=== PATIENT | female | born 1970 | race Hispanic/Latino ===

== ENCOUNTER 2019-06-11 07:30 | Inpatient (IN) | payer OTHER ==
[2019-06-07 12:58] LABS: Basophils # (Auto) 0.1 K/mm3 (0.0-0.1); Basophils % (Auto) 2.8 % (0.0-1.8); Eosinophils # (Auto) 0.1 K/mm3 (0.0-0.4); Eosinophils % (Auto) 2.4 % (0.0-4.3); Lymphocytes # (Auto) 1.4 K/mm3 (1.2-5.4); Mean Corpuscular HGB Conc 32 % (30-34); Mean Corpuscular Volume 86 fl (79-97); Monocytes # (Auto) 0.2 K/mm3 (0.0-0.8); Platelet Count 226 K/mm3 (140-440); Red Cell Distribution Width 16.7 % (13.2-15.2)
--- NOTE | 2019-06-07 17:06 | Anesthesia Consultation ---
Anesthesia Consult and Med Hx Date of service: 06/11/19 - Airway Anesthetic Teeth Evaluation: Good ROM Head & Neck: Adequate Mental/Hyoid Distance: Adequate Mallampati Class: Class II Intubation Access Assessment: Probably Good - Pulmonary Exam CTA: Yes - Cardiac Exam Cardiac Exam: RRR - Pre-Operative Health Status ASA Pre-Surgery Classification: ASA2 Proposed Anesthetic Plan: General Nerve Block: TAP Block - Pulmonary Hx Smoking: No Hx Respiratory Symptoms: No - Cardiovascular System Hx Hypertension: No - Central Nervous System CVA: No - Gastrointestinal Hx Gastroesophageal Reflux Disease: Yes (controlled) - Endocrine Hx Renal Disease: No Hx Liver Disease: No Hx Non-Insulin Dependent Diabetes: No Hx Thyroid Disease: No - Hematic Hx Anemia: Yes - Additional Comments Anesthesia Medical History Comments: No hx anesthetic complications.
--- NOTE | 2019-06-08 21:06 | History and Physical Report ---
History of Present Illness Date of examination: 06/07/19 Chief complaint: 1. Excessive and frequent menstruation with irregular cycle 2. Fibroids of uterus; Intramural 3. Dysmenorrhea 4. 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 Operations: Myomectomy (2009) Breast Biopsy: (1998)(L) benign Abnormal PAP: negative Infection History HIV Risk Eval: no Hx of STD: None Active Medications (reviewed today): MULTIVITAMINS ORAL CAPSULE (MULTIPLE VITAMIN) IRON TABLET (FERROUS GLUCONATE TABS) Current Allergies (reviewed today): No known allergies Past Medical History: Reviewed history from 12/13/2018 and no changes required: Anemia Herniated L4-L5(1997) Past Surgical History: Reviewed history from 03/15/2019 and no changes required: Myomectomy (2009) Breast Biopsy: (1998)(L) benign Family History Summary: Reviewed history and no changes required: 06/08/2019 MGM - Has Family History of Lung Cancer - MGGM - Entered On: 01/22/2019 Uncle - Has Family History of Lung Cancer - MGG uncle - Entered On: 01/22/2019 Other family member - Has No Family History of Biliary Tract Cancer - Entered On: 02/21/2019 Other family member - Has No Family History of Breast Cancer - Entered On: 02/21/2019 Other family member - Has No Family History of Brain Cancer - Entered On: 02/21/2019 Other family member - Has No Family History of Colon Cancer - Entered On: 02/21/2019 Other family member - Has No Family History of Spontaneous DVT-PE - Entered On: 02/21/2019 Other family member - Has No Family History of Kidney/Urinary Tract Cancer - Entered On: 02/21/2019 Other family member - Has No Family History of Ovarvian Cancer - Entered On: 02/21/2019 Other family member - Has No Family History of Pancreatic Cancer - Entered On: 02/21/2019 Other family member - Has No Family History of Stomach Cancer - Entered On: 02/21/2019 Other family member - Has No Family History of Small Bowel Cancer - Entered On: 02/21/2019 Other family member - Has No Family History of Uterine Cancer - Entered On: 02/21/2019 General Comments - FH: MGF multiple myeloma Social History: Reviewed history from 12/13/2018 and no changes required: Patient is single Smoking History: Patient has never smoked. Risk Factors: Smoked Tobacco Use: Never smoker Smokeless Tobacco Use: Never Drug use: no HIV high-risk behavior: no Alcohol use: no Exercise: no Seatbelt use: 100 % Previous Tobacco Use: Signed On - 03/15/2019 Smoked Tobacco Use: Never smoker Smokeless Tobacco Use: Never Drug use: no HIV high-risk behavior: no Previous Alcohol Use: Signed On - 02/21/2019 Alcohol use: no Exercise: no Seatbelt use: 100 % Mammogram History: Date of Last Mammogram: 08/13/2018 PAP Smear History: Date of Last PAP Smear: 08/13/2018 Physical Exam Appearance: well developed, well nourished, no acute distress Other Exams Lungs: no rales, rhonchi, or wheezes Heart: S1, S2, no murmur, rub, or gallop Appearance: pfannesntiel scar Genitourinary Exam Uterus: enlarged; fixed Impression & Recommendations: Problem # 1: Excessive and frequent menstruation with irregular cycle (ICD- 626.6) (YEX02-A30.1) The following medications were removed from the medication list: Ibuprofen 800 Mg Oral Tablet (Ibuprofen) ..... 1 po tid (prn) Her updated medication list for this problem includes: Multivitamins Oral Capsule (Multiple vitamin) Diagnosis explained to patient . Discussed with patient various medical, surgical and radiological therapies common for treatment including, but not limited to, myomectomy, hysterectomy and uterine artery embolization. Discussed risks and benefits of laparotomy, laparoscopy, vaginal and robotic assisted approaches for hysterectomies. Patient desires definitive treatment in the form of robot assisted laparoscopic total hysterectomy. The risks and alternatives for this surgery were reviewed with the patient. She was informed of the risks of the surgery including, but not limited to, pain, infection, b leeding possibly heavy enough to require a blood transfusion with associated risks of infections (hepatitis and HIV) and transfusion reactions, possible damage to bowel, bladder or ureter(s). Patient understands that this surgery with make her sterile. Indications to abort a robotic/laparoscopic procedure and perform an open procedure were explained. Patient understands if her ovaries are removed she will become menopausal. Patient advised the small risks of spreading of malignancy if morcellation is required during the surgery patient understands and approves performing if necessary. Questions answered. Consent reviewed and signed The patient was instructed/informed the following: The normal length of hospital stay for this procedure. Nothing to eat or drink after midnight the evening prior to surgery. Clear liquids the day before surgery. Pre-op instruction sheets given. Wound care instructions given. Problem # 2: Fibroids of uterus; Intramural (ICD-218.1) (YEN88-Y29.1) Diagnosis explained to patient . Questions answered. Discussed with patient rajinder ious medical, surgical and radioloigal therapies common for treatment: Hormonal/medical therapy, fibroid embolization, removal of fibroids or hysterectomy She desires to proceed with hysterectomy The following medications were removed from the medication list: Ibuprofen 800 Mg Oral Tablet (Ibuprofen) ..... 1 po tid (prn) Counseling and coordination of care was >50% of the face to face time. The total face to face time for this visit was ~40 minutes. Problem # 3: Dysmenorrhea (ICD-625.3) (CMV78-V73.6) It was extensively explained to her that her pain may persist, recur or change in nature due to the difficulty with diagnosis chronic pelvic pain or development of adhesions. She declined other treatment options at this time. Questions were encouraged and answered She desires ovarian conservation. She was informed she may require surgery later to have her ovaries removed for a benign or mailgnant condition. She was informed she may require a supracervical hysterectomy to avoid injury to surrounding organs. The following medications were removed from the medication list: Ibuprofen 800 Mg Oral Tablet (Ibuprofen) ..... 1 po tid (prn) Her updated medication list for this problem includes: Multivitamins Oral Capsule (Multiple vitamin) Problem # 4: Anemia secondary to blood loss (chronic) (ICD-280.0) (TOO21-R15.0) Medications Added to Medication List This Visit: 1) Multivitamins Oral Capsule (Multiple vitamin) 2) Multi Vitamins 3) Iron 4) Iron Tablet (Ferrous gluconate tabs) ] Medications and Allergies Allergies Allergy/AdvReac Type Severity Reaction Status Date / Time No Known Allergies Allergy Unverified 05/31/19 13:44 Home Medications Medication Instructions Recorded Confirmed Last Taken Type Iron [Iron 18 MG TAB] 18 mg PO QDAY 05/31/19 05/31/19 Unknown History Multivitamin [Multiple Vitamins] 1 each PO DAILY 05/31/19 05/31/19 Unknown History Active Meds: Active Medications Celecoxib (Celebrex) 200 mg PO PREOP NR Stop: 06/11/19 23:59 Famotidine (Pepcid) 20 mg IV PREOP ONE Stop: 06/11/19 17:07 Fentanyl (Sublimaze) 100 mcg IV ONCE PRN PRN Reason: sedation for nerve block Gabapentin (Gabapentin) 300 mg PO PREOP NR Stop: 06/11/19 23:59 Lactated Ringer's (Lactated Ringers) 1,000 mls @ 100 mls/hr IV DIRECT BOB Midazolam HCl (Versed) 2 mg IV PREOP NR Stop: 06/11/19 23:59 Exam - Constitutional Vitals: Temp Pulse Resp BP Pulse Ox 97.5 F L 64 18 134/67 99 06/07/19 12:30 06/07/19 12:30 06/07/19 12:30 06/07/19 12:30 06/07/19 12:30 Results - Labs CBC & Chem 7: 06/07/19 12:35 Assessment and Plan - Patient Problems (1) Excessive and frequent menstruation with irregular cycle Status: Chronic (2) Intramural leiomyoma of uterus Status: Acute (3) Dysmenorrhea Status: Chronic (4) 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
[~2019-06-11 07:30] MED LIST: CELECOXIB 200 MG CAP PO NR; GABAPENTIN 300 MG CAP PO NR; LACTATED RINGERS 1,000 ML IV SCH; MIDAZOLAM 2 MG/2 ML INJ IV NR; ceFAZolin/Water 2 GM/20 ML 2 GM/20 ML SYRINGE IV NR; fentaNYL 100 MCG/2 ML INJ IV PRN
[2019-06-11] MEDS ORDERED: HYDROmorphone 1 MG/1 ML INJ IV PRN (09:27)
[2019-06-11] MEDS ORDERED: ACETAMINOPHEN 500 MG TAB PO ONE (09:27)
[2019-06-11] MEDS ORDERED: MAGNESIUM OXIDE 400 MG TAB PO ONE (09:27)
[2019-06-11] MEDS ORDERED: ONDANSETRON 4 MG/2 ML INJ IV PRN ×2 (09:27→15:03)
--- NOTE | 2019-06-11 09:29 | Anesthesia Day of Surgery ---
Anesthesia Day of Surgery - Day of Surgery Patient Examined: Yes Patient H&P Reviewed: Yes Patient is NPO: Yes
[2019-06-11] MEDS ORDERED: METHYLENE BLUE 50 MG/10 ML AMP ONE (09:30)
[2019-06-11] MEDS ORDERED: CALCIUM GLUCONATE 1000 MG/10 ML INJ IV ONE (09:31)
[2019-06-11] MEDS ORDERED: CITRIC ACID-SOD CITRATE 500 ML IV ONE (09:32)
[2019-06-11] MEDS ORDERED: CALCIUM CHLORIDE 1,000 MG/10 ML SYRINGE IV ONE (09:32)
[2019-06-11] MEDS ORDERED: BUPIVACAINE-EPINEPHRINE/PF 0.25%-1:200,000 (30 ML) VIAL INFILTRATI ONE (09:34)
[2019-06-11] MEDS ORDERED: THROMBIN (RECOMBINANT) 5,000 UNIT VIAL TP ONE (09:42)
[2019-06-11] MEDS ORDERED: PROPOFOL 200 MG/20 ML VIAL IV ONE (10:00)
[2019-06-11] MEDS ORDERED: ROCURONIUM 50 MG/5 ML INJ IV ONE (10:00)
[2019-06-11] MEDS ORDERED: LIDOCAINE MPF (2%) 20 MG/1 ML VIAL 5 ML ONE (10:00)
[2019-06-11] MEDS ORDERED: dexAMETHasone 20 MG/5 ML VIAL ONE (10:00)
[2019-06-11] MEDS ORDERED: fentaNYL 250 MCG/5 ML INJ ONE (10:00)
[2019-06-11] MEDS ORDERED: NEOSTIGMINE 10MG/10 ML INJ MDV ONE (10:35)
[2019-06-11] MEDS ORDERED: GLYCOPYRROLATE 0.4 MG/2 ML INJ ONE (10:35)
[2019-06-11] MEDS ORDERED: VASOPRESSIN 20 UNIT/1 ML INJ ONE (10:49)
[2019-06-11] MEDS ORDERED: SODIUM CHLORIDE 0.9% 100 ML ONE (10:49)
[2019-06-11] MEDS ORDERED: VASOPRESSIN 20 UNIT/1 ML INJ IM ONE (11:02)
[2019-06-11] MEDS ORDERED: SODIUM CHLORIDE 0.9% 100 ML IVPB IV ONE (11:03)
[2019-06-11] MEDS ORDERED: SODIUM CHLORIDE 0.9% IRR 1,500 ML BOTTLE IR ONE (11:04)
[2019-06-11] MEDS ORDERED: KETOROLAC 30 MG/1 ML INJ ONE (11:13)
[2019-06-11] MEDS ORDERED: LACTATED RINGERS 1,000 ML ONE (11:26)
--- NOTE | 2019-06-11 12:33 | Operative Report ---
Operative Report Operative Report: Date: 06/11/2019 Preoperative diagnosis: 1. Excessive and frequent menstruation with irregular cycle 2. Fibroids of uterus; Intramural 3. Dysmenorrhea 4. Anemia secondary to blood loss (chronic) Postoperative diagnosis: 1. Excessive and frequent menstruation with irregular cycle 2. Fibroids of uterus; Intramural 3. Dysmenorrhea 4. Anemia secondary to blood loss (chronic) 5. Right ovarian cyst Procedure: 1. Total abdominal hysterectomy 2. Bilateral salpingectomy 3. Right ovarian cystectomy Surgeon: Carmita Oneil MD Engine Research Engineer: Elisa Hardy CSA Anesthesiologist: Dr. Mcneal Anesthesia: General anesthesia EBL: 350 mL; Cell Saver 125 mL packed red blood cells Findings: Exam under anesthesia revealed 18 weeks fixed uterus Procedure: After risk, benefits, complications, consequences and alternatives for this procedure were discussed with the patient and she voiced her understanding and desire to proceed, she was taken to the OR and placed in the supine position. General anesthesia was induced. A Patel catheter was introduced into her bladder. She was then prepped and draped in the usual sterile fashion. Timeout was performed. Keloid scar was excised. A Pfannenstiel incision was made and extended to the fascia which was incised and extended lateral direction. The overlying fascia was sharply dissected away from the underlying rectus muscles in the superior inferior direction. The midline was entered with both blunt and sharp dissection. The uterus was then elevated through the incision. The O'Lazaro O'Pearson self retaining retractor was placed. The bowel was secured in the upper moist laparotomy sponges and abdominal blade of the retractor. The bladder blade was then placed. . Using the Enseal tissue sealer device, the round ligaments were then clamped, cauterized and incised bilaterally. With both blunt and sharp dissection the bladder flap was created. Attention was turned to the broad ligament, where the the utero-ovarian ligaments were both clamped, cauterized and incised bilaterally. The uterine vessels were then skeletonized bilaterally. The uterine vessels were then clamped, cauterized and incised bilaterally The cardinal ligaments were then clamped, cauterized and incised bilaterally. The uterosacral ligaments were then clamped, cut and suture ligated using 0 Vicryl with a Munir stitch. The midline was closed using 0 Vicryl in 2 interrupted [id number] stitches. Bilateral salpingectomy was performed. Each tube was sent to pathology in a separate container. The pelvis was then irrigated copiously with warm normal saline. The ureters were noted to be peristaltic and away from the operative field. Hemostasis was noted. Platelet rich plasma was applied to the operative field. Then a membrane of platelet poor plasma was applied to the operative field. Again hemostasis was noted. The bladder and abdominal blades were removed. Laparotomy sponges were removed. Counts were correct 3. The remainder of the platelet poor plasma was applied to the bowel. The rectus muscles were approximated using 0 Vicryl in 3 interrupted simple stitches of 0 Vicryl. Once hemostasis was noted the fascia was reapproximated from distal to midline using 0 Vicryl in a simple running stitch. Adipose tissue was reapproximated using 0 Vicryl interrupted stitch fashion. The skin incision was approximated using 4-0 Monocryl in a subcuticular manner. Patient tolerated procedure well. Patient was taken to recovery room in stable condition additional drainage clearly urine through Patel catheter.
[2019-06-11] MEDS ORDERED: hydrALAZINE 20 MG/1 ML INJ ONE (13:29)
[2019-06-11] MEDS ORDERED: hydrALAZINE 20 MG/1 ML INJ IV PRN (13:30)
[2019-06-11] MEDS ORDERED: FAMOTIDINE 20 MG/2 ML INJ IV SCH ×2 (14:00→22:00)
[2019-06-11] MEDS ORDERED: METOCLOPRAMIDE 10 MG TAB PO PRN (15:03)
[2019-06-11] MEDS ORDERED: ACETAMINOPHEN 650 MG RECT SUPP PR PRN (15:03)
[2019-06-11] MEDS ORDERED: MORPHINE 2 MG/1 ML INJ IV PRN (15:03)
[2019-06-11] MEDS ORDERED: METOCLOPRAMIDE 10 MG/2 ML INJ IV PRN (15:03)
[2019-06-11] MEDS ORDERED: LACTATED RINGERS 1,000 ML IV SCH (15:03)
[2019-06-11] MEDS ORDERED: ACETAMINOPHEN 325 MG TAB PO SCH (15:30)
--- NOTE | 2019-06-11 15:39 | Post Anesthesia Evaluation ---
- Post Anesthesia Evaluation Patient Participated: Yes Airway Patent: Yes Stable Respiratory Function: Yes Nausea/Vomiting: No Temp > 96.8F: Yes Pain Manageable: Yes Adequeate Hydration: Yes Anesthesia Complications: No Block Receding Appropriately: Yes Patient on Ventilator: No
[2019-06-11] MEDS: ceFAZolin/NS 1 GM/50 ML 1 GM/50 ML BAG IV SCH (17:45)
[2019-06-11] MEDS: KETOROLAC 30 MG/1 ML INJ IV SCH (19:54)
[2019-06-12] MEDS: MORPHINE 4 MG/1 ML INJ IV PRN ×2 (00:17→15:24)
[2019-06-12] MEDS: ceFAZolin/NS 1 GM/50 ML 1 GM/50 ML BAG IV SCH (02:23)
[2019-06-12] MEDS: KETOROLAC 30 MG/1 ML INJ IV SCH ×2 (04:13→11:43)
[2019-06-12 06:33] LABS: Hemoglobin 9.6 gm/dl (10.1-14.3)
--- NOTE | 2019-06-12 10:44 | Progress Note ---
Assessment and Plan - Patient Problems (1) S/P total abdominal hysterectomy Current Visit: Yes Status: Acute Plan to address problem: Continue post surgery orders (2) Status post bilateral salpingectomy Current Visit: Yes Status: Acute (3) Excessive and frequent menstruation with irregular cycle Current Visit: No Status: Resolved (4) Intramural leiomyoma of uterus Current Visit: No Status: Resolved (5) Dysmenorrhea Current Visit: No Status: Resolved (6) Iron deficiency anemia secondary to blood loss (chronic) Current Visit: No Status: Chronic Subjective Date of service: 06/12/19 Patient Reports: Positive: no new complaints, tolerating liquids well, voiding w/o difficulty, flatus, afebrile Narrative: POD#1, no complaints, resting in bed, with visitors at bedside Objective Vital Signs - 12hr 06/12/19 06/12/19 06/12/19 01:10 06:05 08:05 Temperature 97.9 F 98.3 F Pulse Rate 71 70 Respiratory 20 16 20 Rate Blood Pressure 121/56 126/61 O2 Sat by Pulse 98 98 Oximetry 06/12/19 06/12/19 08:06 09:52 Temperature 97.6 F Pulse Rate 75 Respiratory 18 18 Rate Blood Pressure 128/56 O2 Sat by Pulse 99 Oximetry - General physical appearance well developed, well nourished, no distress - Respiratory normal expansion, normal respiratory effort, clear to auscultation - Abdomen soft, not tender, bowel sounds normal, surgical scars (c/d/i, no s/s infection or hematoma) - Integumentary no rash - Neurologic normal coordination - Psychiatric oriented to time, oriented to person, oriented to place, speech is normal, memory intact - Labs 06/12/19 05:43
[2019-06-12] MEDS ORDERED: ACETAMINOPHEN 325 MG TAB PO PRN (10:50)
[2019-06-12] MEDS ORDERED: SIMETHICONE 80 MG CHEW TAB PO PRN (16:02)
[2019-06-12] MEDS ORDERED: IBUPROFEN 800 MG TAB PO PRN (19:00)
[2019-06-12] MEDS: HYDROcodone/ACETAMINOPHEN 5-325 MG TAB PO PRN (20:12)
[2019-06-12] MEDS ORDERED: FAMOTIDINE 20 MG TAB PO SCH (22:00)
[2019-06-13] MEDS: HYDROcodone/ACETAMINOPHEN 5-325 MG TAB PO PRN ×2 (04:48→08:41)
--- NOTE | 2019-06-13 07:35 | Discharge Summary ---
Providers - Providers Date of Admission: 06/11/19 08:42 Date of discharge: 06/13/19 Attending physician: JAMES ARROYO Primary care physician: [employer] COUNTER MANAGER Hospitalization Condition: Good Procedures: [facility] Hospital course: Normal Disposition: DC-01 TO HOME OR SELFCARE - Discharge Diagnoses (1) S/P total abdominal hysterectomy Status: Acute (2) Status post bilateral salpingectomy Status: Acute (3) Excessive and frequent menstruation with irregular cycle Status: Resolved (4) Intramural leiomyoma of uterus Status: Resolved (5) Dysmenorrhea Status: Resolved (6) 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 Desires discharge home. - Constitutional Vitals: Temp Pulse Resp BP Pulse Ox 98 F 67 16 128/57 95 06/13/19 01:03 06/13/19 01:03 06/13/19 01:03 06/13/19 01:03 06/13/19 01:03 General appearance: Present: no acute distress - Neck Neck: Present: supple - Respiratory Respiratory effort: normal Respiratory: bilateral: CTA - Cardiovascular Rhythm: regular - Extremities Extremities: no ischemia, No edema - Abdominal General gastrointestinal: Present: soft, non-tender, non-distended, normal bowel sounds - Integumentary Integumentary: Present: clear, warm, dry (Incision c/d/i, no s/s infection or hematoma) - Musculoskeletal Musculoskeletal: strength equal bilaterally - Psychiatric Psychiatric: appropriate mood/affect, intact judgment & insight, memory intact, cooperative - Neurologic Neurologic: CNII-XII intact Plan Activity: other (No sex. Ambulate ~1mile on your property a day, void and use your incentive spirometer every hour while awake. No driving. No exercise. ) Weight Bearing Status: Full Weight Bearing Diet: regular (Eat small meal frequently. Drink 90oz water day. Avoid fatty, spicy high sodium food. ) Wound: open to air, keep clean and dry Special Instructions: no heavy lifting (Greater than 25lbs) Care Plan Goals: Full recovery with complications Plan of Treatment: See discharge instructions Health Concerns: Prevention of VTE and infection discussed Follow up with: JAMES ARROYO MD [Staff Physician] - 7 Days (as scheduled) Prescriptions: Ibuprofen [Motrin 800 MG tab] 800 mg PO Q8H PRN #30 tablet PRN Reason: Pain, Mild (1-3) HYDROcodone/APAP 5-325 [[place] 5-325 mg TAB] 1 each PO Q6H PRN #20 tablet PRN Reason: Pain, Moderate (4-6)
[2019-06-13 10:40] VITALS: BP 132/66
== END 2019-06-13 10:30 | disposition home or self-care (01) | DRG 743 ==
LOC: 3A 08:42 → OB 14:11
PROVIDERS: ADMIT Obstetrics & Gynecology; ATTEND Obstetrics & Gynecology
PROC: 0UT90ZZ Resection of Uterus, Open Approach (ICD-10-PCS; principal; 2019-06-11)
PROC: 0UT70ZZ Resection of Bilateral Fallopian Tubes, Open Approach (ICD-10-PCS; 2019-06-11)
PROC: 0UT00ZZ Resection of Right Ovary, Open Approach (ICD-10-PCS; 2019-06-11)
PROC: 0HB7XZZ Excision of Abdomen Skin, External Approach (ICD-10-PCS; 2019-06-11)
DX: D25.1 Intramural leiomyoma of uterus (principal); N94.6 Dysmenorrhea, unspecified; D50.0 Iron deficiency anemia secondary to blood loss (chronic); N92.1 Excessive and frequent menstruation with irregular cycle; K21.9 Gastro-esophageal reflux disease without esophagitis; Z80.1 Family history of malignant neoplasm of trachea, bronchus and lung
CPT/HCPCS: 36415; 64450; 81025; 85014; 85018; 85025; 86850; 86900; 86901; 88302; 88305; 88307; G0378; J0360; J0610; J0690; J1100; J1170; J1885; J2250; J2270; J2405; J2704; J2710; J3010; J7120; Q9968